=== PATIENT | male | born 1980 | race Caucasian/White ===

== ENCOUNTER 2023-02-28 10:00 | Emergency (ER) | payer OTHER ==
[~2023-02-28] VITALS: Ht 175.3 cm; Wt 111.6 kg
[2023-02-28] MEDS ORDERED: PERIDEX473 M1 PO (10:19)
[2023-02-28] MEDS ORDERED: PENICILLIN V P500 MG PO (10:19)
== END 2023-02-28 10:49 | disposition home or self-care (01) ==
LOC: ER 10:08
DX: S01.511A Laceration without foreign body of lip, initial encounter (principal); W22.8XXA Striking against or struck by other objects, initial encounter; Y99.0 Civilian activity done for income or pay; I10 Essential (primary) hypertension; E11.9 Type 2 diabetes mellitus without complications; Z95.5 Presence of coronary angioplasty implant and graft
CPT/HCPCS: 99283